=== PATIENT | male | born 1970 | race Caucasian/White ===

== ENCOUNTER 2017-05-06 15:03 | Emergency (ER) | payer MEDICARE, OTHER ==
[~2017-05-06] VITALS: Ht 175.3 cm; Wt 74.8 kg
[2017-05-06 15:41] LABS: BASOPHILS % (AUTO) 0.5 % (0.0-2.0); EOSINOPHILS # (AUTO) 0.1 /CMM (0.0-0.7); EOSINOPHILS % (AUTO) 2.3 % (0.0-6.0); HEMATOCRIT 38 % (39-51); HEMOGLOBIN 13.7 g/dL (13.5-17.5); LYMPHOCYTES # (AUTO) 2.2 /CMM (0.8-4.8); LYMPHOCYTES % (AUTO) 34.1 % (20.0-44.0); MEAN CORPUSCULAR HEMOGLOBIN 33 PG (26.0-33.0); MEAN CORPUSCULAR HGB CONC 36 g/dl (31.0-36.0); MEAN CORPUSCULAR VOLUME 93 fL (80-96); MONOCYTES # (AUTO) 0.4 /CMM (0.1-1.30); MONOCYTES % (AUTO) 6.7 % (2.0-12.0); NEUTROPHILS # (AUTO) 3.7 /CMM (1.8-8.9); NEUTROPHILS % (AUTO) 56.4 % (43.0-81.0); PLATELET COUNT (AUTO) 164 /CMM (150-450); RDW COEFFICIENT OF VARIATION 11.7 (11.5-15.0); RED BLOOD CELL COUNT(AUTO) 4.13 MIL/uL (4.5-6.0); WHITE BLOOD COUNT (AUTO) 6.4 K/uL (4.3-11.0)
[2017-05-06 15:49] LABS: CARBON DIOXIDE 25 mmol/L (21-32); CHLORIDE 106 mmol/L (98-107); GLUCOSE 148 mg/dL (74-106); SODIUM SERUM 139 mmol/L (136-145); UREA NITROGEN, BLOOD 14 mg/dL (7-18)
[2017-05-06 15:57] LABS: TROPONIN I < 0.017 ng/mL (0.00-0.056)
[2017-05-06 16:11] LABS: ALANINE AMINOTRANSFERASE 18 U/L (12-78); ALBUMIN 3.6 g/dL (3.4-5.0); ALCOHOL, BLOOD < 3 mg/dL (0-0); ALKALINE PHOSPHATASE 45 U/L (46-116); ASPARTATE AMINOTRANSFERASE 15 U/L (15-37); BILIRUBIN,DIRECT 0.1 mg/dL (0.0-0.2); BILIRUBIN,TOTAL 0.3 mg/dL (0.2-1.0); SALICYLATE 2.5 mg/dL (2.8-20.0); TOTAL PROTEIN, SERUM 6.9 g/dL (6.4-8.2)
[2017-05-06 16:12] LABS: ACETAMINOPHEN < 2 ug/ml (10-30)
[2017-05-06 17:00] LABS: APPEARANCE,URINE Clear (CLEAR); BILIRUBIN,URINE Negative (NEGATIVE); BLOOD, URINE Negative Ery/uL (NEGATIVE); COLOR,URINE Yellow (YELLOW); KETONES,URINE Negative (NEGATIVE); LEUKOCYTE ESTERASE ,URINE Negative (NEGATIVE); NITRITE, URINE Negative (NEGATIVE); PROTEIN,URINE Negative (NEGATIVE); UGLUCOSE Negative (NEGATIVE); UROBILINOGEN,URINE 0.2 EU/dL (0.2)
[2017-05-06] MEDS ORDERED: OLANZAPINE 5 MG/TAB.RAPDIS PO ONE (18:00)
[2017-05-06] MEDS ORDERED: OLANZAPINE 5 MG/TAB.RAPDIS ONE (18:01)
--- NOTE | 2017-05-06 18:10 | NUR ---
CALLED [facility] FOR TRANSPORT BACK TO [facility] AND [facility], [place] [address], TRIP #[id number]
--- NOTE | 2017-05-06 19:08 | NUR ---
REPORT RECEIVED FROM [facility] FOR [facility].
--- NOTE | 2017-05-06 19:25 | NUR ---
PT IN ER BED 15. PT BIB [facility] FOR SI WITH [facility]RIAS TO L WRIST. SUICIDE PRECAUTIONS IN PLACE. PT COOPERATIVE, RESTING QUIETLY. PT ON TEACHER CCLC. VSS/RESP EVEN UNLABORED/NAD NOTED/SKIN WARM AND DRY/DENIES N-V-D/AOX4.
--- NOTE | 2017-05-06 19:41 | NUR ---
REPORT GIVEN TO EMT'S. Patient discharged to home in stable condition. Written and verbal after care instructions given. Patient verbalizes understanding of instruction.
[2017-05-06 19:42] VITALS: BP 131/81
== END 2017-05-06 19:43 | disposition home or self-care (01) ==
LOC: ER 15:06
DX: S61.511A Laceration without foreign body of right wrist, initial encounter (principal); R44.0 Auditory hallucinations; G40.909 Epilepsy, unspecified, not intractable, without status epilepticus; E78.00 Pure hypercholesterolemia, unspecified; F32.9 Major depressive disorder, single episode, unspecified; F84.0 Autistic disorder; I10 Essential (primary) hypertension; F17.200 Nicotine dependence, unspecified, uncomplicated; X78.8XXA Intentional self-harm by other sharp object, initial encounter; Y93.89 Activity, other specified; Y92.89 Other specified places as the place of occurrence of the external cause; Y99.8 Other external cause status
CPT/HCPCS: 36415; 71045; 80048; 80076; 80305; 80329; 81001; 84484; 85025; 93005; 99285; A4606; A6402; G0480 ×2; 81000-TC; Z7610